=== PATIENT | female | born 1965 | race Caucasian/White ===

== ENCOUNTER → 2016-10-24 | Outpatient (CLI) | payer OTHER | LOC: MAMO 10-16 14:50 | DX: Z12.31 Encounter for screening mammogram for malignant neoplasm of breast (principal) | CPT/HCPCS: G0202 ==

== ENCOUNTER 2020-11-01 14:09 | Emergency (ER) | payer OTHER ==
[~2020-11-01 14:09] MED LIST: ALLERCLEAR10 MG PO; HYDROCODON-ACE1 EAC2 PO; OMEPRAZOLE20 MG PO; PRINIVIL20 MG PO; SYNTHROID88 MCG PO; VITAMIN D-32000 UNIT PO
[2020-12-07] MEDS ORDERED: VITAMIN B-121000 MCG PO (08:42)
[2020-12-07] MEDS ORDERED: MOBIC7.5 MG PO (08:42)
[2020-12-07] MEDS ORDERED: LEVOCETIRIZINE D5 MG PO (08:42)
[2020-12-07] MEDS ORDERED: VALSARTAN160 MG PO (08:43)
[2020-12-07] MEDS ORDERED: AMLODIPINE BESYL5 MG PO (08:44)
[2020-12-07] MEDS ORDERED: VITAMIN D PO (08:45)
[2020-12-07] MEDS ORDERED: SYNTHROID100 MCG PO (08:45)
[2020-12-07] MEDS ORDERED: OMEPRAZOLE20 MG PO (08:45)
== END 2020-11-01 17:40 | disposition home or self-care (01) ==
LOC: ER1 14:09
DX: S51.011A Laceration without foreign body of right elbow, initial encounter (principal); I10 Essential (primary) hypertension; E03.9 Hypothyroidism, unspecified; W26.8XXA Contact with other sharp object(s), not elsewhere classified, initial encounter; Y92.009 Unspecified place in unspecified non-institutional (private) residence as the place of occurrence of the external cause; Z23 Encounter for immunization
CPT/HCPCS: 12002; 73080; 90471; 90715; 99283

== ENCOUNTER → 2020-12-07 | Day surgery (SDC) | payer OTHER ==
[~2020-12-07] MED LIST changes: +AMLODIPINE BESYL5 MG PO; +LEVOCETIRIZINE D5 MG PO; +MOBIC7.5 MG PO; +SYNTHROID100 MCG PO; +VALSARTAN160 MG PO; +VITAMIN B-121000 MCG PO; +VITAMIN D PO; +ZOFRAN ODT 4 MG4 MG PO
== END | disposition home or self-care (01) ==
LOC: OR 07:49
DX: K22.5 Diverticulum of esophagus, acquired (principal); T18.128A Food in esophagus causing other injury, initial encounter; K22.2 Esophageal obstruction; K29.50 Unspecified chronic gastritis without bleeding; K44.9 Diaphragmatic hernia without obstruction or gangrene; K21.9 Gastro-esophageal reflux disease without esophagitis; I10 Essential (primary) hypertension; E05.90 Thyrotoxicosis, unspecified without thyrotoxic crisis or storm; M46.1 Sacroiliitis, not elsewhere classified; E78.2 Mixed hyperlipidemia; E89.0 Postprocedural hypothyroidism; E66.9 Obesity, unspecified; Z68.33 Body mass index [BMI] 33.0-33.9, adult; Z88.8 Allergy status to other drugs, medicaments and biological substances; Z79.899 Other long term (current) drug therapy
CPT/HCPCS: J2704; J7040

== ENCOUNTER 2020-12-17 23:43 | Observation (INO) | payer OTHER ==
[~2020-12-17] VITALS: Ht 162.6 cm; Wt 85.8 kg
[~2020-12-17 23:43] MED LIST changes: -ZOFRAN ODT 4 MG4 MG PO
== END 2020-12-18 15:57 | disposition home or self-care (01) ==
LOC: ER1 23:43 → CDU 12-18 01:21 → PROG CARE 12-18 02:15
PROVIDERS: ADMIT Surgery
DX: K22.5 Diverticulum of esophagus, acquired (principal); K44.9 Diaphragmatic hernia without obstruction or gangrene; K22.2 Esophageal obstruction; I25.10 Atherosclerotic heart disease of native coronary artery without angina pectoris; I10 Essential (primary) hypertension; E03.9 Hypothyroidism, unspecified; K21.9 Gastro-esophageal reflux disease without esophagitis; E55.9 Vitamin D deficiency, unspecified; E11.9 Type 2 diabetes mellitus without complications; Z88.8 Allergy status to other drugs, medicaments and biological substances; Z90.49 Acquired absence of other specified parts of digestive tract; Z20.822 Contact with and (suspected) exposure to COVID-19
CPT/HCPCS: 0240U; 96374; 99284; G0378; J0330; J1100; J1610; J2250; J2405; J2704; J3010; J7040

== ENCOUNTER 2020-12-22 12:47 | Observation (INO) | payer OTHER ==
[~2020-12-22] VITALS: Ht 162.6 cm; Wt 86.4 kg
[2020-12-22 16:13] LABS: HEMOGLOBIN 14.5 gm/dl (12.3-15.3); RED BLOOD COUNT 5.16 M/UL (4.00-5.10); WHITE BLOOD COUNT 13.1 K/UL (4.5-11.0)
[2020-12-23 06:24] LABS: HEMOGLOBIN 11.5 gm/dl (12.3-15.3); RED BLOOD COUNT 4.14 M/UL (4.00-5.10); WHITE BLOOD COUNT 5.7 K/UL (4.5-11.0)
[2020-12-23 06:26] LABS: BUN/CREATININE RATIO 16 (0-10)
[2020-12-23] MEDS ORDERED: ZOFRAN ODT 4 MG4 MG PO (11:06)
== END 2020-12-23 13:13 | disposition home or self-care (01) ==
LOC: ER1 12:47 → CDU 18:07 → MED SURG 4 21:06
PROVIDERS: Internal Medicine; Preventive Medicine Occupational Medicine; ADMIT Family Medicine
DX: R11.2 Nausea with vomiting, unspecified (principal); K52.9 Noninfective gastroenteritis and colitis, unspecified; E86.0 Dehydration; K22.5 Diverticulum of esophagus, acquired; K44.9 Diaphragmatic hernia without obstruction or gangrene; E83.39 Other disorders of phosphorus metabolism; K21.9 Gastro-esophageal reflux disease without esophagitis; E55.9 Vitamin D deficiency, unspecified; E03.9 Hypothyroidism, unspecified; I10 Essential (primary) hypertension; Z20.822 Contact with and (suspected) exposure to COVID-19; Z90.49 Acquired absence of other specified parts of digestive tract; Z88.8 Allergy status to other drugs, medicaments and biological substances
CPT/HCPCS: 36415; 80053; 81001; 82009; 82140; 83605; 83690; 83735; 84100; 85025; 85027; 85652; 86140; 87040; 87086; 96372; 96374; 96375; 96376; 99285; C9113; G0378; J1650; J2405; J7030; Q9967; U0002

== ENCOUNTER → 2021-07-28 | Outpatient (CLI) | payer OTHER ==
[~2021-07-28] VITALS: Ht 154.9 cm; Wt 77.1 kg
[~2021-07-28] MED LIST changes: +ZOFRAN ODT 4 MG4 MG PO
== END ==
LOC: EROP 07:41
DX: U07.1 COVID-19 (principal); Z23 Encounter for immunization
CPT/HCPCS: 96365

== ENCOUNTER → 2021-12-19 | Outpatient (CLI) | payer OTHER | LOC: MAMO 08:25 | DX: Z12.31 Encounter for screening mammogram for malignant neoplasm of breast (principal); Z78.0 Asymptomatic menopausal state | CPT/HCPCS: 77063; 77067 ==